=== PATIENT | female | born 1945 ===

== ENCOUNTER 2022-01-30 18:20 | Emergency (ER) | payer MEDICARE, MEDICAID ==
[2022-01-30] MEDS ORDERED: Potassium Chloride 10 MEQ Tab.ER PO ONE ×2 (18:21→19:58)
[2022-01-30 19:57] LABS: ANION GAP 11.9 mEq/L (7-13)
[2022-01-30] MEDS ORDERED: Potassium Chloride 10 MEQ Tab.ER ONE (20:23)
== END 2022-01-30 21:08 | disposition home or self-care (01) ==
LOC: DL.ED 18:20
DX: E87.6 Hypokalemia (principal); E03.9 Hypothyroidism, unspecified; E11.9 Type 2 diabetes mellitus without complications; Z88.5 Allergy status to narcotic agent
CPT/HCPCS: 36415; 80053; 83735; 84443; 85025; 99284; A9270